=== PATIENT | female | born 1950 | race Caucasian/White ===

== ENCOUNTER → 2020-01-02 | Outpatient (CLI) | payer MEDICARE ==
--- NOTE | 2020-01-02 19:58 | RAD ---
EXAM DESCRIPTION: Foot,Right 3 Views CLINICAL HISTORY: 69 years Female, PAIN IN RIGHT FOOT COMPARISON: None. Findings: 3 view(s)/radiograph(s) Transverse, minimally displaced right fifth metatarsal base fracture. No other fracture is identified. No dislocation. Lisfranc alignment is maintained. Mild scattered degenerative changes. IMPRESSION: Minimally displaced transverse right fifth metatarsal base fracture. Electronically signed by: Denys Abdalla MD 01/02/2020 7:57 PM CDT
== END ==
LOC: RAD 09:26
PROVIDERS: ATTEND Orthopaedic Surgery
DX: S92.351A Displaced fracture of fifth metatarsal bone, right foot, initial encounter for closed fracture (principal)

== ENCOUNTER → 2020-01-31 | Outpatient (CLI) | payer MEDICARE ==
--- NOTE | 2020-02-02 08:02 | RAD ---
EXAM DESCRIPTION: Foot,Right 3 Views CLINICAL HISTORY: 69 years Female, CLOSED FX OF FIFTH METATARSAL BONE COMPARISON: 01/02/2020 Findings: 3 view(s)/radiograph(s) Similar alignment of the transverse right fifth metatarsal base fracture. No interval healing. No new fracture. No dislocation. Lisfranc alignment is maintained. IMPRESSION: Similar right fifth metatarsal base fracture. Electronically signed by: Denys Abdalla MD 02/02/2020 8:01 AM [facility]
== END ==
LOC: RAD 07:50
PROVIDERS: ATTEND Orthopaedic Surgery
DX: S92.354D Nondisplaced fracture of fifth metatarsal bone, right foot, subsequent encounter for fracture with routine healing (principal)